=== PATIENT | female | born 2000 | race Caucasian/White ===

== ENCOUNTER 2019-02-14 12:18 | Emergency (ER) | payer OTHER ==
[~2019-02-14] VITALS: Ht 167.6 cm; Wt 52.2 kg
[~2019-02-14 12:18] MED LIST: ACETAMINOP160 MG/5 M PO; NOHOMEMEDICATIONS
[2019-02-14] MEDS ORDERED: BIRTH CONTROL PO (12:30)
[2019-02-14] MEDS ORDERED: LEXAPRO20 MG PO (12:30)
[2019-02-14 13:16] LABS: URINE BILIRUBIN NEGATIVE (Negative); URINE BLOOD 1+ (Negative); URINE CLARITY CLEAR; URINE COLOR YELLOW; URINE GLUCOSE-RANDOM NEGATIVE (Negative); URINE KETONES NEGATIVE (Negative); URINE LEUKOCYTES 3+ (Negative); URINE NITRITE NEGATIVE (Negative); URINE PROTEIN TRACE (Negative); URINE SPECIFIC GRAVITY 1.025 (1.005-1.030)
[2019-02-14 13:24] LABS: BACTERIA >30 Many /HPF (None Seen); CASTS None Seen /LPF (None Seen); CRYSTALS None Seen /LPF (None Seen); SQUAMOUS 0-3 Few /LPF (0-3); URINE RBC 0-2 Rare /HPF (0-2); URINE WBC 6-15 Few /HPF (0-5)
[2019-02-14] MEDS ORDERED: IBUPROFEN 800800 MG PO (14:30)
[2019-02-14] MEDS ORDERED: CYCLOBENZAPRINE5 MG PO (14:30)
[2019-02-14 14:53] VITALS: BP 106/67
== END 2019-02-14 14:53 | disposition home or self-care (01) ==
LOC: M.ERS 12:18
PROVIDERS: Personal Emergency Response Attendant
DX: S13.4XXA Sprain of ligaments of cervical spine, initial encounter (principal); M41.9 Scoliosis, unspecified; F41.9 Anxiety disorder, unspecified; K31.84 Gastroparesis; V49.49XA Driver injured in collision with other motor vehicles in traffic accident, initial encounter; Y93.89 Activity, other specified; Y92.89 Other specified places as the place of occurrence of the external cause; Y99.8 Other external cause status